=== PATIENT | male | born 1960 | race Two or more races ===

== ENCOUNTER 2017-05-08 05:21 | Inpatient (IN) | payer OTHER ==
[~2017-05-08] VITALS: Ht 185.4 cm; Wt 101.3 kg
[2017-05-08] VITALS (7 sets, daily range): BP systolic 104–135; BP diastolic 60–84
[~2017-05-08 05:21] MED LIST: ATOR20TA PO; CYCL-343 PO; IBUP-1482 PO; LORA0.5T PO; LOSA25TA13 PO; METF850T2 PO; METO25TA6 PO; NABU750T2 PO; OMEP20CA10 PO; TRAM100T14 PO
--- NOTE | 2017-05-08 06:27 | NUR ---
RN OPEN NOTES RECEIVED PATIENT FROM HOME WITH AT BEDSIDE FOR SCHEDULED DAY SURGERY. A/O X4. NO SIGNS OF DISTRESS OR DISCOMFORT. BREATHING EVEN AND UNLABORED. ORIENTED PATIENT TO UNIT AND ROOM. SKIN INTACT. ALL NEEDS ATTENDED TO. BED IN LOW LOCKED POSITION WITH SIDE RAILS X2. CALL LIGHT WITHIN REACH. WILL ENDORSE TO AM SHIFT FOR TANIA.
[2017-05-08] MEDS ORDERED: BUSP15TA3 PO (07:09)
[2017-05-08] MEDS ORDERED: METF10002 PO (07:09)
[2017-05-08] MEDS ORDERED: METO-302 PO (07:09)
[2017-05-08] MEDS ORDERED: ATOR40TA PO (07:09)
[2017-05-08] MEDS ORDERED: ACET1TAB14 PO (07:09)
[2017-05-08] MEDS ORDERED: GABA-536 PO (07:09)
[2017-05-08] MEDS ORDERED: LOSA25TA13 PO (07:09)
[2017-05-08] MEDS ORDERED: OMEP20CA10 PO (07:09)
[2017-05-08] MEDS ORDERED: HYDR-3658 PO (07:09)
[2017-05-08] MEDS ORDERED: GLIP10TA11 PO (07:09)
[2017-05-08] MEDS ORDERED: KETOROLAC TROMETHAMINE INJ 30 MG/ML VIAL ONE (07:15)
[2017-05-08] MEDS ORDERED: BACITRACIN 50000 UNITS/VIAL ONE (07:15)
[2017-05-08] MEDS ORDERED: BUPIVACAINE 0.5 % PF 150 MG/30 ML VIAL ONE (07:15)
[2017-05-08] MEDS ORDERED: TRANEXAMIC ACID 3,000 MG in SODIUM CHLORIDE IRRIG SOLUTION 70 ML IR ONE (07:30)
--- NOTE | 2017-05-08 08:07 | NUR ---
RN MS NOTES PATIENT ALERT AND ORIENTED X4, KEPT NPO AT THIS TIME, PIV ON LEFT AC #20 INSERTED BY OR NURSE, PATIENT TAKEN TO OR FOR SURGERY.
[2017-05-08] MEDS ORDERED: MIDAZOLAM HCL 2 MG/2ML VIAL ONE (08:52)
[2017-05-08] MEDS ORDERED: FENTANYL PF 100MCG/2ML AMPUL ONE (08:52)
[2017-05-08] MEDS ORDERED: ONDANSETRON HCL/PF 4 MG/2 ML VIAL IVP PRN (09:00)
[2017-05-08] MEDS ORDERED: Z GUARD REMEDY 2 OZ OINT TP PRN (09:00)
[2017-05-08] MEDS ORDERED: Medication Not On Formulary EA (Atorvastatin Calcium (Lipitor) 1 TAB) PO SCH (09:00)
[2017-05-08] MEDS: GABAPENTIN 400 MG CAPSULE PO SCH ×4 (09:00→21:25)
[2017-05-08] MEDS ORDERED: LORAZEPAM 0.5 MG TABLET PO PRN (09:00)
[2017-05-08] MEDS ORDERED: MAGNESIUM HYDROXIDE 30 ML UDC PO PRN (09:00)
[2017-05-08] MEDS ORDERED: HYDROCODONE/APAP 5/325MG 1 EACH TABLET PO PRN (09:00)
[2017-05-08] MEDS ORDERED: MAG HYDROX/AL HYDROX/SIMETH 30 ML UDC PO PRN ×2 (09:00→16:30)
[2017-05-08] MEDS ORDERED: ACETAMINOPHEN 325 MG TABLET PO PRN (09:00)
[2017-05-08] MEDS ORDERED: DEXTROSE 50%-WATER 50 ML DISP.SYRIN IV PRN (09:00)
[2017-05-08] MEDS ORDERED: ZOLPIDEM TARTRATE 5 MG TABLET PO PRN (09:00)
[2017-05-08] MEDS ORDERED: SENNOSIDES 8.6 MG TABLET PO PRN (11:30)
[2017-05-08] MEDS ORDERED: BISACODYL SUPP (10 MG) 10 MG/SUPP.RECT SUPP.RECT RC PRN (11:30)
--- NOTE | 2017-05-08 11:30 | NUR ---
RN MS NOTES PATIENT CAME BACK FROM OR. ALERT AND ORIENTED X4, DENIES PAIN AT THIS TIME. RECEIVED ORDERS FROM DR. AGUILAR. ORDERS NOTED AND CARRIED OUT. VERIFIED WITH PHARMACY, ORDERS RECEIVED.
[2017-05-08] MEDS: METOPROLOL TARTRATE 25 MG TABLET PO SCH ×2 (11:57→17:11)
[2017-05-08] MEDS: LOSARTAN POTASSIUM 25 MG TABLET PO SCH (11:57)
[2017-05-08] MEDS: ATORVASTATIN 40 MG TABLET PO SCH (11:58)
[2017-05-08] MEDS: BLOOD SUGAR DIAGNOSTIC 1 EACH STRIP VI SCH ×3 (12:00→21:20)
[2017-05-08] MEDS: IV D5/0.45 NACL 1,000 ML IV PRN (12:10)
[2017-05-08] MEDS: INSULIN REGULAR, HUMAN 100 UNIT/ML 3 ML VIAL SQ PRN ×2 (12:21→17:18)
[2017-05-08] MEDS ORDERED: ACETAMINOPHEN W/ CODEINE#3 1 EA TABLET PO SCH (13:00)
[2017-05-08] MEDS ORDERED: HYDROMORPHONE 1 MG/1 ML DISP.SYRIN SQ ONE (15:30)
[2017-05-08] MEDS ORDERED: HYDROMORPHONE 1 MG/1 ML DISP.SYRIN SQ PRN (15:30)
[2017-05-08] MEDS ORDERED: oxyCODONE IR immediate release 5 MG CAPSULE PO PRN (15:30)
[2017-05-08] MEDS ORDERED: diphenhydrAMINE HCL 25 MG CAPSULE PO PRN (16:30)
[2017-05-08] MEDS ORDERED: busPIRone 5 MG TABLET PO PRN (17:00)
[2017-05-08] MEDS ORDERED: DOCUSATE SODIUM 250 MG CAPSULE PO SCH (17:00)
[2017-05-08] MEDS: ANCEF 1 GM/50 ML D5W IV SCH ×2 (17:09)
[2017-05-08] MEDS: DOCUSATE SODIUM 100 MG CAPSULE PO SCH (17:11)
--- NOTE | 2017-05-08 18:42 | NUR ---
RN MS NOTES PATIENT ALERT AND ORIENTED X4, SEEN AND EXAMINED BY DR. JAIN AND DR. VILLALOBOS FOR PAIN MANAGEMENT. PATIENT COMPLAINING OF NUMBNESS ON RIGHT THUMB AND RIGHT INDEX FINGER, DR. JAIN ADDRESSED PATIENT'S CONCERNS. NO S/SX OF HYPO/HYPERGLYCEMIA NOTED. IVF INFUSING AND TOLERATING WELL, NEEDS ATTENDED AND MET, PATIENT HAD 1 BM DURING THIS SHIFT. SAFETY MEASURES IN PLACED, CALL LIGHT WITHIN REACH, WILL ENDORSE TO FACULTY DEAN FOR TANIA.
[2017-05-08] MEDS: oxyCODONE IR immediate release 5 MG CAPSULE PO PRN (19:03)
--- NOTE | 2017-05-08 19:26 | NUR ---
RN NOTES PATIENT IS IN BED ALERT AND ORIENTED X4. VS STABLE. FAMILY PRESENT AT THE BEDSIDE. RESPIRATIONS EVEN AND UNLABORED. NO RESPIRATORY DISTRESS NOTED. IVF ACCESS ON LEFT AC PATENT AND INTACT. INFUSING D5 1/2 NS AT 125 ML/HR. NO REDNESS OR INFILTRATION NOTED. BED IN LOW POSITION. SIDE RAILS X2. CALL LIGHT WITHIN EASY REACH. CONTINUE TO MONITOR.
[2017-05-08] MEDS: CYCLOBENZAPRINE 10 MG TABLET PO SCH (21:25)
[2017-05-08] MEDS: *INSULIN REGULAR(HUMULIN R)HUM 100 UNIT/ML VIAL SQ PRN (21:27)
[2017-05-08] MEDS ORDERED: GABAPENTIN 100 MG CAPSULE PO SCH (22:00)
[2017-05-09] MEDS: ANCEF 1 GM/50 ML D5W IV SCH ×2 (01:19)
[2017-05-09] MEDS: IV D5/0.45 NACL 1,000 ML IV PRN (03:34)
[2017-05-09] MEDS: oxyCODONE IR immediate release 5 MG CAPSULE PO PRN (03:47)
--- NOTE | 2017-05-09 03:49 | NUR ---
RN NOTES PATIENT C/O PAIN. OXI IR 10 MG ADMINISTERED PRN. CONTINUE TO MONITOR.
[2017-05-09 06:46] LABS: BASOPHILS % (AUTO) 0.3 % (0.0-2.0); EOSINOPHILS # (AUTO) 0.1 /CMM (0.0-0.7); HEMATOCRIT 37 % (39-51); HEMOGLOBIN 12.4 g/dL (13.5-17.5); LYMPHOCYTES # (AUTO) 1.6 /CMM (0.8-4.8); LYMPHOCYTES % (AUTO) 18.9 % (20.0-44.0); MEAN CORPUSCULAR HEMOGLOBIN 31 PG (26.0-33.0); MEAN CORPUSCULAR HGB CONC 34 g/dl (31.0-36.0); MEAN CORPUSCULAR VOLUME 92 fL (80-96); MONOCYTES # (AUTO) 0.6 /CMM (0.1-1.30); MONOCYTES % (AUTO) 7.3 % (2.0-12.0); NEUTROPHILS # (AUTO) 6.2 /CMM (1.8-8.9); NEUTROPHILS % (AUTO) 72.5 % (43.0-81.0); PLATELET COUNT (AUTO) 108 /CMM (150-450); RDW COEFFICIENT OF VARIATION 13.5 (11.5-15.0); RED BLOOD CELL COUNT(AUTO) 3.98 MIL/uL (4.5-6.0); WHITE BLOOD COUNT (AUTO) 8.6 K/uL (4.3-11.0)
--- NOTE | 2017-05-09 06:54 | NUR ---
RN CLOSING NOTES PATIENT IS IN BED SLEEPING, ALERT AND ORIENTED X4. VS STABLE. NO C/O PAIN AT THIS TIME. RESPIRATIONS EVEN AND UNLABORED. IVF ACCESS ON LEFT AC PATENT AND INTACT. INFUSING D5 1/2 NS AT 125 ML/HR. NO REDNESS OR INFILTRATION NOTED. ALL MEDICATIONS GIVEN PER MD ORDER. BED IN LOW POSITION. SIDE RAILS X2. CALL LIGHT WITHIN EASY REACH. WILL ENDORSE TO RN DAY SHIFT FOR CONTINUITY OF CARE.
[2017-05-09] MEDS: BLOOD SUGAR DIAGNOSTIC 1 EACH STRIP VI SCH ×4 (07:08→21:48)
[2017-05-09] MEDS: INSULIN REGULAR, HUMAN 100 UNIT/ML 3 ML VIAL SQ PRN ×3 (07:11→16:53)
[2017-05-09 07:22] LABS: CALCIUM, SERUM 8.3 mg/dL (8.5-10.1); CREATININE 1.1 mg/dL (0.6-1.3); MAGNESIUM 1.8 mg/dL (1.8-2.4); PHOSPHORUS 3.9 mg/dL (2.5-4.9); POTASSIUM 4.1 mmol/L (3.5-5.1)
--- NOTE | 2017-05-09 07:30 | NUR ---
MS RN AM NOTES: PATIENT IN BED, AAO X 4, S/P RT SHOULDER ARTHROTOMY 05/08/17 DR AGUILAR, CDI DRESSING, ON RA, NO ACUTE DISTRESS NOTED. BREATHING EVEN AND UNLABORED, NO SOB NOTED. D5 1/2NS AT 125 ML/HR TO LFA INFUSING WELL. SITE CLEAR, REGULAR DIET, AMBULATORY, BRP. BED LOCKED AND IN LOWEST POSITION, CALL LIGHT IN REACH. WILL CONTINUE TO MONITOR.
[2017-05-09 08:00] VITALS: BP 118/78
[2017-05-09] MEDS: ASPIRIN 325 MG TABLET PO SCH (08:36)
[2017-05-09] MEDS: PANTOPRAZOLE 40 MG TABLET.DR PO SCH (08:36)
[2017-05-09] MEDS: ATORVASTATIN 40 MG TABLET PO SCH (08:36)
[2017-05-09] MEDS: GABAPENTIN 400 MG CAPSULE PO SCH ×3 (08:36→21:48)
[2017-05-09] MEDS: METOPROLOL TARTRATE 25 MG TABLET PO SCH ×2 (08:37→16:49)
[2017-05-09] MEDS: DOCUSATE SODIUM 100 MG CAPSULE PO SCH ×2 (08:37→16:49)
[2017-05-09] MEDS: LOSARTAN POTASSIUM 25 MG TABLET PO SCH (08:38)
--- NOTE | 2017-05-09 09:30 | NUR ---
MS RN NOTES ADMINISTERED DUE MEDS.
--- NOTE | 2017-05-09 12:24 | NUR ---
MS RN NOTES ACCUCHECK. BS 191 MG/DL. 6 UNITS HUM R PER SS GIVEN
[2017-05-09 16:00] VITALS: BP 100/62
--- NOTE | 2017-05-09 16:44 | NUR ---
MS RN NOTES ACCUCHECK. BS 216 MG/DL. 6 UNITS HUM R PER SS GIVEN
[2017-05-09] MEDS ORDERED: HYDROCODONE/APAP 5/325MG 1 EACH TABLET PO PRN (17:30)
[2017-05-09] MEDS ORDERED: CYCLOBENZAPRINE 10 MG TABLET PO PRN (18:00)
[2017-05-09 18:01] VITALS: BP 100/62
--- NOTE | 2017-05-09 18:17 | NUR ---
MS RN CLOSING NOTES: PATIENT IN BED, RESTING, AT BEDSIDE, AAO X 4, S/P RT SHOULDER ARTHROTOMY 05/08/17 DR AGUILAR, CDI DRESSING, ON RA, NO ACUTE DISTRESS NOTED. BREATHING EVEN AND UNLABORED, NO SOB NOTED. LEFT AC G 20 FLUSHES WELL SITE CLEAR. REQUESTED TO BE OFF IVF AT THIS TIME AND STATED HE IS DRINKING ANYWAYS. REGULAR DIET, AMBULATORY, BRP. BED LOCKED AND IN LOWEST POSITION, CALL LIGHT IN REACH. ALL NEEDS MET AT THIS TIME. NO OTHER SIGNIFICANT CHANGE IN CONDITION. WILL ENDORSE TO NEXT SHIFT FOR TANIA.
--- NOTE | 2017-05-09 19:35 | NUR ---
RN OPEN NOTES RECEIVED PATIENT AWAKE IN BED. A/O X4. NO SIGNS OF DISTRESS OR DISCOMFORT. BREATHING EVEN AND UNLABORED. IV ACCESS IN LAC PATENT AND INTACT, NO SIGNS OF REDNESS OR INFILTRATION. PATIENT REFUSING IVF AT THIS TIME, STATES HE IS DRINKING ENOUGH FLUIDS. DRESSING ON R ARM C/D/I AND SLING IN PLACE. STATES PAIN 7/10 IN R SHOULDER AND WAS JUST GIVEN FLEXERIL. BED IN LOW LOCKED POSITION WITH SIDE RAILS X2. CALL LIGHT WITHIN REACH. WILL CONTINUE TO MONITOR.
[2017-05-09 20:00] VITALS: BP 111/69
[2017-05-09] MEDS: CYCLOBENZAPRINE 10 MG TABLET PO SCH (21:50)
[2017-05-09] MEDS: *INSULIN REGULAR(HUMULIN R)HUM 100 UNIT/ML VIAL SQ PRN (21:50)
[2017-05-10] MEDS: INSULIN REGULAR, HUMAN 100 UNIT/ML 3 ML VIAL SQ PRN ×3 (06:23→17:19)
[2017-05-10] MEDS: PANTOPRAZOLE 40 MG TABLET.DR PO SCH (06:30)
[2017-05-10] MEDS: BLOOD SUGAR DIAGNOSTIC 1 EACH STRIP VI SCH ×4 (06:30→21:36)
--- NOTE | 2017-05-10 06:52 | NUR ---
RN CLOSING NOTES PATIENT RESTING IN BED, EASILY AROUSABLE. A/O X4. NO SIGNS OF DISTRESS OR DISCOMFORT. BREATHING EVEN AND UNLABORED. IV ACCESS IN LAC PATENT AND INTACT, NO SIGNS OF REDNESS OR INFILTRATION. PATIENT STILL REFUSING IVF, STATES HE IS DRINKING ENOUGH FLUIDS. DRESSING ON R ARM C/D/I AND SLING IN PLACE. STATES PAIN 6/10 IN R SHOULDER AND TOLERABLE AT THIS TIME. ALL NEEDS MET. NO SIGNIFICANT CHANGES THROUGH THE NIGHT. BED IN LOW LOCKED POSITION WITH SIDE RAILS X2. CALL LIGHT WITHIN REACH. WILL ENDORSE TO AM SHIFT FOR TANIA.
--- NOTE | 2017-05-10 07:30 | NUR ---
MS RN AM NOTES: PATIENT IN BED, AAO X 4, S/P RT SHOULDER ARTHROTOMY 05/08/17 DR AGUILAR, CDI DRESSING, ON RA, NO ACUTE DISTRESS NOTED. BREATHING EVEN AND UNLABORED, NO SOB NOTED. LFA IV SITE, FLUSHES WELL. SITE CLEAR, PATIENT REFUSED TO BE HOOKED TO IVF AT THIS TIME. STATED, HE IS OKAY AND DRINKS OKAY. REGULAR DIET, AMBULATORY, BRP. BED LOCKED AND IN LOWEST POSITION, CALL LIGHT IN REACH. WILL CONTINUE TO MONITOR.
[2017-05-10 08:00] VITALS: BP 131/71
[2017-05-10] MEDS: ASPIRIN 325 MG TABLET PO SCH (09:05)
[2017-05-10] MEDS: DOCUSATE SODIUM 100 MG CAPSULE PO SCH ×2 (09:05→16:16)
[2017-05-10] MEDS: GABAPENTIN 400 MG CAPSULE PO SCH ×3 (09:05→21:20)
[2017-05-10] MEDS: LOSARTAN POTASSIUM 25 MG TABLET PO SCH (09:06)
[2017-05-10] MEDS: ATORVASTATIN 40 MG TABLET PO SCH (09:06)
[2017-05-10] MEDS: METOPROLOL TARTRATE 25 MG TABLET PO SCH ×2 (09:06→16:17)
[2017-05-10] MEDS: HYDROCODONE/APAP 10/325MG 1 EA TABLET PO PRN ×3 (09:14→19:21)
--- NOTE | 2017-05-10 09:30 | NUR ---
MS RN NOTES ADMINISTERED DUE MEDS.
[2017-05-10] MEDS ORDERED: IRON ASPGLY&PS/C/B12/FA/CA/SUC 1 CAP CAPSULE PO SCH (11:00)
[2017-05-10] MEDS: FERROUS SULFATE (325 MG) 325 MG/TAB TABLET PO SCH (11:24)
[2017-05-10] MEDS: VIT B CMPLX 3/FA/VIT C/BIOTIN 1 TAB TABLET PO SCH (11:25)
--- NOTE | 2017-05-10 11:58 | NUR ---
MS RN NOTES ACCUCHECK. BS 253 MG/DL. 9 UNITS HUM R PER SS GIVEN
[2017-05-10 12:46] LABS: IRON, SERUM 37 ug/dl (50-175); TOTAL IRON BINDING CAPACITY 372 ug/dl (250-450)
[2017-05-10 16:00] VITALS: BP 116/66
--- NOTE | 2017-05-10 17:15 | NUR ---
MS RN NOTES ACCUCHECK. BS 159 MG/DL. 2 UNITS HUM R PER SS GIVEN
[2017-05-10 18:00] VITALS: BP 118/68
--- NOTE | 2017-05-10 18:43 | NUR ---
MS RN CLOSING NOTES: PATIENT IN BED, RESTING, AT BEDSIDE, AAO X 4, S/P RT SHOULDER ARTHROTOMY 05/08/17 DR AGUILAR, DRESSING CHANGED BY LYNNE OCONNOR EARLIER CDI, , ON RA, NO ACUTE DISTRESS NOTED. BREATHING EVEN AND UNLABORED, NO SOB NOTED. LEFT AC G 20 FLUSHES WELL SITE CLEAR. REQUESTED TO BE OFF IVF AT THIS TIME AND STATED HE IS DRINKING ANYWAYS. REGULAR DIET, AMBULATORY, BRP. BED LOCKED AND IN LOWEST POSITION, CALL LIGHT IN REACH. ALL NEEDS MET AT THIS TIME. NO OTHER SIGNIFICANT CHANGE IN CONDITION. WILL ENDORSE TO NEXT SHIFT FOR TANIA. FOR DC PLANNING. CLEARED BY ORTHO.
[2017-05-10 20:00] VITALS: BP 103/61
--- NOTE | 2017-05-10 20:00 | NUR ---
MS/RN OPENING NOTES PATIENT IN BED, RESTING COMFORTABLY IN BED, ALERT, OREINTED X3. ABLE TO VERBALIZE NEEDS, PAIN WAS GIVEN BY AM RN AT THE BEGINNING OF THE SHIFT. WILL MONITOR. CALL LIGHTS WITHIN REACH. BED IN LOCK POSITION. PROVIDE FLUIDS.
[2017-05-10] MEDS: CYCLOBENZAPRINE 10 MG TABLET PO SCH (21:20)
[2017-05-10] MEDS: *INSULIN REGULAR(HUMULIN R)HUM 100 UNIT/ML VIAL SQ PRN (21:35)
[2017-05-10] MEDS ORDERED: SENNOSIDES 8.6 MG TABLET PO SCH (22:00)
[2017-05-11] MEDS: IV D5/0.45 NACL 1,000 ML IV PRN (05:48)
[2017-05-11] MEDS: HYDROCODONE/APAP 10/325MG 1 EA TABLET PO PRN (06:00)
[2017-05-11 06:29] LABS: BASOPHILS % (AUTO) 0.4 % (0.0-2.0); EOSINOPHILS # (AUTO) 0.2 /CMM (0.0-0.7); EOSINOPHILS % (AUTO) 4.9 % (0.0-6.0); HEMATOCRIT 40 % (39-51); HEMOGLOBIN 13.7 g/dL (13.5-17.5); LYMPHOCYTES # (AUTO) 1.7 /CMM (0.8-4.8); LYMPHOCYTES % (AUTO) 34.9 % (20.0-44.0); MEAN CORPUSCULAR HEMOGLOBIN 32 PG (26.0-33.0); MEAN CORPUSCULAR HGB CONC 35 g/dl (31.0-36.0); MEAN CORPUSCULAR VOLUME 92 fL (80-96); MONOCYTES # (AUTO) 0.4 /CMM (0.1-1.30); MONOCYTES % (AUTO) 8.3 % (2.0-12.0); NEUTROPHILS # (AUTO) 2.5 /CMM (1.8-8.9); NEUTROPHILS % (AUTO) 51.5 % (43.0-81.0); PLATELET COUNT (AUTO) 110 /CMM (150-450); RDW COEFFICIENT OF VARIATION 13.7 (11.5-15.0); RED BLOOD CELL COUNT(AUTO) 4.34 MIL/uL (4.5-6.0); WHITE BLOOD COUNT (AUTO) 4.8 K/uL (4.3-11.0)
--- NOTE | 2017-05-11 06:38 | NUR ---
304-2 MS/RN CLOSING NOTES PATIENT ABLE TO SLEEP DURING THE NIGHT, NO GUARDIN OR GRIMACE OBSERVED, PAIN MGMT MONITORING. STOOL TO COLLECT, TOLERATE MEDICATION BY MOUTH, SENNA GIVEN, WILL PROVIDE PRUNE JUICE AND TO COLLECT STOOL, WILL ENDORSE TO AM RN FOR TANIA.
[2017-05-11 06:39] LABS: MAGNESIUM 1.8 mg/dL (1.8-2.4); PHOSPHORUS 4.4 mg/dL (2.5-4.9); POTASSIUM 4.1 mmol/L (3.5-5.1)
[2017-05-11] MEDS: BLOOD SUGAR DIAGNOSTIC 1 EACH STRIP VI SCH (06:45)
[2017-05-11] MEDS: INSULIN REGULAR, HUMAN 100 UNIT/ML 3 ML VIAL SQ PRN (06:51)
--- NOTE | 2017-05-11 07:40 | NUR ---
MS RN OPENING NOTE PATIENT IS ALERT AND ORIENTED x4. PATIENT STATES 6/10 PAIN SHARP ON RIGHT SHOULDER. PAIN MEDICATION GIVEN. ABLE TO COMMUNICATE NEEDS. CALL LIGHT WITHIN REACH. SAFETY MEASURES IMPLEMENTED. AMBULATORY. HAS RIGHT SHOULDER SLING ON AT THIS TIME. LEFT AC IV INTACT AND PATENT NO REDNESS OR SWELLING NOTED. IV FLUIDS RUNNING AT THIS TIME, TOLERATING WELL. BRP. AWAITING FOR STOOL TO BE COLLECTED. POSSIBLE DISCHARGE TODAY WILL FOLLOW UP WITH MD. WILL CONTINUE TO MONITOR PATIENT
[2017-05-11] MEDS: PANTOPRAZOLE 40 MG TABLET.DR PO SCH (07:59)
[2017-05-11 08:00] VITALS: BP 111/71
[2017-05-11] MEDS: DOCUSATE SODIUM 100 MG CAPSULE PO SCH (08:00)
[2017-05-11] MEDS: ATORVASTATIN 40 MG TABLET PO SCH (08:00)
[2017-05-11] MEDS: LOSARTAN POTASSIUM 25 MG TABLET PO SCH (08:00)
[2017-05-11] MEDS: METOPROLOL TARTRATE 25 MG TABLET PO SCH (08:00)
[2017-05-11] MEDS: ASPIRIN 325 MG TABLET PO SCH (08:01)
[2017-05-11] MEDS: GABAPENTIN 400 MG CAPSULE PO SCH (08:01)
[2017-05-11] MEDS: VIT B CMPLX 3/FA/VIT C/BIOTIN 1 TAB TABLET PO SCH (08:02)
[2017-05-11] MEDS: FERROUS SULFATE (325 MG) 325 MG/TAB TABLET PO SCH (08:02)
--- NOTE | 2017-05-11 13:19 | NUR ---
MS NECKTIES PAINTER NOTE PATIENT IS ALERT AND ORIENTED x4. NO PAIN AT THIS TIME. NO SOB OR DISTRESS NOTED. CALL LIGHT WITHIN REACH AT ALL TIMES. SAFETY MEASURES IMPLEMENTED. ABLE TO COMMUNICATE NEEDS. ALL DUE MEDICATIONS GIVEN ORDERED. ALL NURSING CARE NEEDS ATTENDED TO. ALL BELONGINGS WITH AT BEDSIDE THAT WERE BROUGHT FROM HOME. ALL DISCHARGE INSTRUCTIONS WERE GIVEN TO PATIENT AND BOTH WERE ABLE TO RETURN DISCHARGE INSTRUCTIONS. FOLLOW UP APPOINTMENT WITH DR. MEADE ON Monday05/18/17 AND FOLLOW UP APPT WITH DR. AGUILAR ALREADY MADE WITH PATIENT. INSTRUCTIONS GIVEN ON RIGHT SHOULDER CARE AND PAIN MANAGEMENT. LEFT VIA PRIVATE CAR WITH . IV REMOVED, SKIN INTACT
== END 2017-05-11 13:00 | disposition home health service (06) | DRG 483 ==
LOC: DS 05:21 → MED 05:23
PROVIDERS: ADMIT Internal Medicine; ATTEND Internal Medicine
PROC: 0RRJ0J6 Replacement of Right Shoulder Joint with Synthetic Substitute, Humeral Surface, Open Approach (ICD-10-PCS; principal; 2017-05-08 09:31)
PROC: 0LS30ZZ Reposition Right Upper Arm Tendon, Open Approach (ICD-10-PCS; principal; 2017-05-08 09:31)
DX: M19.011 Primary osteoarthritis, right shoulder (principal); E88.81 Metabolic syndrome and other insulin resistance; D63.8 Anemia in other chronic diseases classified elsewhere; E11.9 Type 2 diabetes mellitus without complications; E78.5 Hyperlipidemia, unspecified; E66.9 Obesity, unspecified; I25.10 Atherosclerotic heart disease of native coronary artery without angina pectoris; K21.9 Gastro-esophageal reflux disease without esophagitis; I25.2 Old myocardial infarction; I10 Essential (primary) hypertension; F41.9 Anxiety disorder, unspecified; F32.9 Major depressive disorder, single episode, unspecified; Z83.3 Family history of diabetes mellitus; Z82.49 Family history of ischemic heart disease and other diseases of the circulatory system; G89.4 Chronic pain syndrome; Z79.84 Long term (current) use of oral hypoglycemic drugs; Z68.29 Body mass index [BMI] 29.0-29.9, adult
CPT/HCPCS: 36415; 80048-TC; 82962-TC; 83540-TC; 83735-TC; 84100-TC; 85025-TC; 87081-TC; A4217; A4565; A6402; C1713; J0690; J1100; J1170; J1815; J1885; J2250; J2704; J2710; J3010; J3490; J7060; Z7610

== ENCOUNTER 2017-05-15 13:06 | Outpatient (CLI) | payer OTHER ==
[~2017-05-15 13:06] MED LIST changes: +ACET1TAB14 PO; +BUSP15TA3 PO; -CYCL-343 PO; +CYCL10TA9 PO; +GABA-536 PO; +GLIP10TA11 PO; +HYDR-3658 PO; -IBUP-1482 PO; +IBUP-1957 PO; +METO-356 PO; -METO25TA6 PO; -NABU750T2 PO
[2017-05-15 13:15] VITALS: BP 116/82
== END 2017-05-15 23:59 | disposition home or self-care (01) ==
LOC: MSC 13:06
PROVIDERS: ATTEND Internal Medicine
DX: M19.011 Primary osteoarthritis, right shoulder (principal); I25.10 Atherosclerotic heart disease of native coronary artery without angina pectoris; E11.9 Type 2 diabetes mellitus without complications; I10 Essential (primary) hypertension; E78.5 Hyperlipidemia, unspecified; F41.9 Anxiety disorder, unspecified; F32.9 Major depressive disorder, single episode, unspecified; K21.9 Gastro-esophageal reflux disease without esophagitis; I25.2 Old myocardial infarction; Z98.890 Other specified postprocedural states